=== PATIENT | male | born 1990 ===

== ENCOUNTER 2022-03-16 08:31 | Outpatient (CLI) | payer OTHER | END 2022-03-16 08:48 | disposition home or self-care (01) | LOC: MRI 08:31 | DX: G35 Multiple sclerosis (principal) | CPT/HCPCS: 72142 ==

== ENCOUNTER 2022-03-18 07:26 | Outpatient (CLI) | payer OTHER | END 2022-03-18 07:38 | disposition home or self-care (01) | LOC: MRI 07:26 | DX: G35 Multiple sclerosis (principal) | CPT/HCPCS: 70552 ==

== ENCOUNTER → 2022-03-31 | Outpatient (CLI) | payer OTHER | END | disposition home or self-care (01) | LOC: SONOGRAMA 11:27 | DX: G57.30 Lesion of lateral popliteal nerve, unspecified lower limb (principal); M25.561 Pain in right knee ==